=== PATIENT | female | born 1955 | race Hispanic/Latino ===

== ENCOUNTER 2018-01-18 09:21 | Day surgery (SDC) | payer BC ==
[2018-01-11 12:47] VITALS: BMI 27.3
[2018-01-18 10:05] VITALS: RESP 18
[2018-01-18] MEDS ORDERED: ceFAZolin IV 1 gm in Dextrose 1 GM/50 ML BAG IVPB ONE (11:26)
[2018-01-18] MEDS ORDERED: Midazolam 2 MG/2 ML VIAL ONE (11:47)
[2018-01-18] MEDS ORDERED: Propofol 10 mg/ml Inj (20 ML) ONE (11:47)
[2018-01-18] MEDS: Bupivacaine 0.25% 20 ML INJ IJ ONE ×2 (12:19→13:00)
[2018-01-18] MEDS: Lidocaine/Epinephrine 1% 1:100000 10 ML IJ ONE ×2 (12:19→13:00)
[2018-01-18] MEDS ORDERED: HYDROmorphone 0.5 mg/0.5 ml ISec IVP PRN (13:15)
--- NOTE | 2018-01-18 13:18 | PCM.SURG1 ---
Surgeon's Initial Post Op Note - Surgeon's Notes Surgeon: Melody Bear Bus Driver/Monitor: Demarcus Dorsey Type of Anesthesia: General LMA, Local Pre-Operative Diagnosis: L wrist ganglion cyst Operative Findings: deep ganglion cyst [id number] beyond tendon. Post-Operative Diagnosis: Same Operation Performed: Ligation of ganglion cyst cavity, aspiration of synovial fluids. Specimen/Specimens Removed: ganglion cyst partial Estimated Blood Loss: EBL {In ML}: 5 Blood Products Given: N/A Drains Used: No Drains Post-Op Condition: Good Date of Surgery/Procedure: 01/18/18 Time of Surgery/Procedure: 13:18
--- NOTE | 2018-01-18 20:38 | OP ---
PROCEDURE DATE: 01/18/2018 PREOPERATIVE DIAGNOSIS: Ganglion cyst of left dorsal wrist recurrent. POSTOPERATIVE DIAGNOSIS: Ganglion cyst of left dorsal wrist recurrent. PROCEDURE DONE: Excision of the ganglion cyst of the left wrist dorsum. ANESTHESIA: General endotracheal tube anesthesia. ESTIMATED BLOOD LOSS: Around 10 mL. DRAINS: None. PATHOLOGY: Ganglion cyst was sent for the pathology. COMPLICATIONS: None. INTRAOPERATIVE FINDING: The patient had left dorsal wrist ganglion cyst of approximately cm in size. DESCRIPTION OF PROCEDURE: On intraoperative step, this 62-year-old female who was diagnosed with a ganglion cyst of the left dorsum and the patient was consented for excision of the ganglion cyst of the left dorsum. The patient was brought to the OR, placed supine on the operating room table after induction of anesthesia, the left wrist and left forearm was prepped and draped in the usual sterile fashion. An elliptical incision was made and an upper and lower flap was created. The old scar was excised and the dissection was carried down to the underlying fascia and excision was carried down up to the wrist joint. All the tendon surrounding the ganglion cyst involved were isolated to prevent any injury and now the ganglion cyst was opened up, all the fluid was drained out and the cyst was completely excised at the joint level and the cyst cavity was sutured with 4-0 PDS continuous suture to prevent recurrence of the cyst and after that the wound was closed in two layers, the subcu with 2-0 Vicryl and the skin with 4-0 Monocryl and dry sterile dressing was applied. The wrist immobilizer was also applied and the patient was extubated in the OR and taken to the postanesthesia care in stable condition. Sebastien Orlando MD
[2018-01-19 00:20] VITALS: BP 115/56; PULSE 80; TEMP 97.8; O2SAT 98
== END 2018-01-18 16:00 | disposition home or self-care (01) ==
LOC: C.SDS 09:21
PROVIDERS: ATTEND Surgery Surgical Critical Care
DX: M67.40 Ganglion, unspecified site (principal); M67.432 Ganglion, left wrist
CPT/HCPCS: 25111; 88304; J0690; J2250; J2704; J3010